=== PATIENT | female | born 2000 | race African-American/Black ===

== ENCOUNTER 2019-06-12 20:12 | Emergency (ER) | payer SELFPAY ==
[~2019-06-12] VITALS: Ht 172.7 cm; Wt 64.0 kg
[2019-06-12 20:19] VITALS: BP 135/81
== END 2019-06-13 00:30 | disposition left against medical advice (07) ==
LOC: ER 20:12
DX: R10.9 Unspecified abdominal pain (principal); Z53.21 Procedure and treatment not carried out due to patient leaving prior to being seen by health care provider